=== PATIENT | male | born 1985 | race Caucasian/White ===

== ENCOUNTER 2023-11-06 16:56 | Emergency (ER) | payer MEDICAID ==
[~2023-11-06] VITALS: Ht 177.8 cm; Wt 100.0 kg
[2023-11-06 17:32] VITALS: BP 128/83; PULSE 92; RESP 16; TEMP 97.1; O2SAT 98
== END 2023-11-06 20:52 | disposition home or self-care (01) ==
LOC: ER 16:56
DX: Z00.00 Encounter for general adult medical examination without abnormal findings (principal)
CPT/HCPCS: 99281